=== PATIENT | male | born 1995 | race Caucasian/White ===

== ENCOUNTER 2017-03-08 17:50 | Emergency (ER) | payer OTHER ==
[~2017-03-08] VITALS: Ht 188 cm; Wt 98.2 kg
[2017-03-08 18:00] VITALS: TEMP 36.4; Ht 188 cm; Wt 98.2 kg
[2017-03-08 19:50] LABS: BUN/CREATININE RATIO 6.7 (10-20); CALCIUM 8.4 mg/dl (8.5-10.1); CREATININE 0.87 mg/dl (0.60-1.40); POTASSIUM 3.4 mmol/L (3.5-5.1)
--- NOTE | 2017-03-08 20:20 | DIAGNOSTIC IMAGING REPORT ---
CT HEAD WITHOUT CONTRAST (CT) CLINICAL HISTORY: Head pain status post trauma. Intoxication. COMPARISON STUDY: No previous studies for comparison. TECHNIQUE: Axial CT of the brain is performed from the vertex to the skull base. IV contrast was not administered for this examination. CT DOSE: 3125.23 mGy.cm FINDINGS: No intra or extra-axial mass lesions are visualized. There is no CT evidence of acute cortical infarction. There is no evidence of midline shift. There is no acute hemorrhage. No calvarial fractures are visualized. The study is mildly compromised due to motion artifact. There is no evidence of pathologic ventricular dilatation. There is no evidence of acute sinusitis IMPRESSION: Normal noncontrast head CT. Electronically signed by: Collin Grady M.D. 03/08/2017 8:17 PM Dictated Date/Time: 03/08/2017 8:16 PM
--- NOTE | 2017-03-08 20:23 | DIAGNOSTIC IMAGING REPORT ---
CT OF THE CERVICAL SPINE CLINICAL HISTORY: Neck pain status post trauma COMPARISON STUDY: No previous studies for comparison. CT DOSE: TECHNIQUE: CT scan of the cervical spine was performed from the skull base to the thoracic inlet. Images are reviewed in the axial, sagittal, and coronal planes. IV contrast was not administered for this examination. FINDINGS: The visualized portions of the lung apices reveal no evidence of pneumothorax. The prevertebral soft tissues are normal. No fractures or subluxations are visualized. IMPRESSION: No evidence of acute fracture or traumatic subluxation. Electronically signed by: Collin Grady M.D. 03/08/2017 8:20 PM Dictated Date/Time: 03/08/2017 8:19 PM
[2017-03-08 23:00] VITALS: BP 121/54
[2017-03-08 23:35] VITALS: PULSE 76; O2SAT 97
--- NOTE | 2017-03-09 02:00 | EMERGENCY ROOM VISIT NOTE ---
History Report prepared by Nemesio: Gonsalo Tellez Under the Supervision of: Dr. Fabian Troncoso D.O. First contact with patient: 17:55 Chief Complaint: ALCOHOL OVERDOSE Stated Complaint: ETOH Nursing Triage Summary: pt was found unconscious by police given sternal rub pt awoke grabbing police arms was not cooperative. was cuffed and brought to ed History of Present Illness The patient is a 21 year old male who presents to the Emergency Room with complaints of constant alcohol intoxication occurring prior to arrival. Per the nursing staff, the patient was found unresponsive, and once given a sternal rub by the police, he woke up and he started swinging at the police, so he was handcuffed. The patient states that he was drinking alcohol. He denies being hurt or having any medical problems. The patient's history is limited due to alcohol intoxication. Source of History: patient, nursing staff History Limited By: intoxication Onset: prior to arrival Position: other (global) Quality: other (alcohol intoxication) Timing: constant Review of Systems See HPI for pertinent positives & negatives. A total of 10 systems reviewed and were otherwise negative. Past Medical & Surgical Limited due to alcohol intoxication Family History Limited due to alcohol intoxication Social History Smoking Status: Never Smoker Alcohol Use: occasionally Occupation Status: [employer] student Current/Historical Medications Unable to Obtain Active Prescriptions or Reported Meds Physical Exam Vital Signs Date Time Temp Pulse Resp B/P Pulse Ox O2 Delivery O2 Flow Rate FiO2 03/08/17 23:35 76 17 97 03/08/17 23:05 76 14 97 03/08/17 23:00 121/54 03/08/17 22:35 70 18 95 03/08/17 22:13 75 03/08/17 22:05 70 18 95 03/08/17 22:00 98/49 03/08/17 21:35 68 17 96 03/08/17 21:30 70 18 96 03/08/17 21:00 68 16 117/59 97 03/08/17 20:55 114/54 03/08/17 19:30 61 16 95 03/08/17 18:29 68 16 125/57 95 Room Air 03/08/17 18:15 68 03/08/17 18:00 36.4 89 18 154/72 96 Room Air Physical Exam GENERAL: Laying in bed, disheveled, smell of alcohol is present on his breath. HEAD: Small abrasion over the anterior chin. EYE EXAM: injected conjunctiva, PERRL and EOM's grossly intact OROPHARYNX: no exudate, no erythema, lips, buccal mucosa, and tongue normal and mucous membranes are moist NOSE: No septal hematoma. NECK: supple, no nuchal rigidity, no adenopathy, non-tender LUNGS: Clear to auscultation. Normal chest wall mechanics HEART: no murmurs, S1 normal and S2 normal ABDOMEN: abdomen soft, non-tender, normo-active bowel sounds, no masses, no rebound or guarding. BACK: Back is symmetrical on inspection and there is no deformity, no midline tenderness, no CVA tenderness. SKIN: no rashes and no bruising UPPER EXTREMITIES: Full active and passive range of motion without pain of all joints. Upper extremities are grossly normal. LOWER EXTREMITIES: No pitting edema. NEURO EXAM: Alert and following commands and immediately. Slurring speech. No focal deficits. Visibly intoxicated. Medical Decision & Procedures ER Provider Diagnostic Interpretation: Radiology results as stated below per my review and the radiologist's interpretation: CT OF THE CERVICAL SPINE CLINICAL HISTORY: Neck pain status post trauma COMPARISON STUDY: No previous studies for comparison. CT DOSE: TECHNIQUE: CT scan of the cervical spine was performed from the skull base to the thoracic inlet. Images are reviewed in the axial, sagittal, and coronal planes. IV contrast was not administered for this examination. FINDINGS: The visualized portions of the lung apices reveal no evidence of pneumothorax. The prevertebral soft tissues are normal. No fractures or subluxations are visualized. IMPRESSION: No evidence of acute fracture or traumatic subluxation. Electronically signed by: Collin Grady M.D. 03/08/2017 8:20 PM Dictated Date/Time: 03/08/2017 8:[address] HEAD WITHOUT CONTRAST (CT) CLINICAL HISTORY: Head pain status post trauma. Intoxication. COMPARISON STUDY: No previous studies for comparison. TECHNIQUE: Axial CT of the brain is performed from the vertex to the skull base. IV contrast was not administered for this examination. CT DOSE: 3125.23 mGy.cm FINDINGS: No intra or extra-axial mass lesions are visualized. There is no CT evidence of acute cortical infarction. There is no evidence of midline shift. There is no acute hemorrhage. No calvarial fractures are visualized. The study is mildly compromised due to motion artifact. There is no evidence of pathologic ventricular dilatation. There is no evidence of acute sinusitis IMPRESSION: Normal noncontrast head CT. Electronically signed by: Collin Grady M.D. 03/08/2017 8:17 PM Dictated Date/Time: 03/08/2017 8:16 PM Laboratory Results 03/08/17 19:17 Test 03/08/17 19:17 Anion Gap 9.0 mmol/L (3-11) Est Creatinine Clear Calc Drug Dose 157.5 ml/min Estimated GFR () 144.0 Estimated GFR (Non- 124.2 BUN/Creatinine Ratio 6.7 (10-20) Calcium Level 8.4 mg/dl (8.5-10.1) Ethyl Alcohol mg/dL 319.0 mg/dl (0-3) Laboratory results per my review. ED Course ED COURSE: Vital signs were reviewed and showed normal vitals The patients medical record was reviewed The above diagnostic studies were performed and reviewed. ED treatments and interventions as stated above. 0: The patient was evaluated in room B3. A complete history and physical examination was performed. 2205: I reevaluated the patient, and he awoken to painful stimuli 0042: I reassessed the patient, and he was up and walking around trying to find a sober friend. 0112: Upon reevaluation, the patient is resting and his friend, Saul, is going to take the patient home. I discussed my findings with the patient and he understands and agrees with the treatment plan. Based on the patients age, coexisting illnesses, exam and lab findings the decision to treat as an outpatient was made. The patient remained stable while under my care. The patient appeared well at the time of discharge. Medical Decision Differential diagnosis includes etiologies such as alcohol intoxication, toxicologic, infection, hypoglycemia, electrolyte abnormalities, cardiac sources , intracerebral event, neurologic, as well as others were entertained. Patient is a 21-year-old male brought in by police and EMS following being found sleeping and becoming agitated when awoken. Patient was visibly intoxicated. Nonfocal exam. Labs show slight hyper natremia with the secondary to the alcohol. Alcohol was 320. Patient was observed for over 6 hours. He did have a sober friend come to pick him up. He was able to ambulate throughout the room without difficulty. Patient has no new complaints. At this time I felt was reasonable to discharge him in the care of his sober friend.Discussed with Pt concerning signs and symptoms to watch out for. Pt was instructed to follow up with their PCP and discussed with the patient their option to return to the ED at anytime for persistent or worsening symptoms. The appropriate anticipatory guidance and out-patient management, including indications for return to the emergency department, were explained at length to the patient and understood. Impression Primary Impression: Alcohol abuse Additional Impression: Alcohol use with intoxication Scribe Attestation The scribe's documentation has been prepared under my direction and personally reviewed by me in its entirety. I confirm that the note above accurately reflects all work, treatment, procedures, and medical decision making performed by me. Departure Information Dispostion Home / Self-Care Prescriptions Unable to Obtain Active Prescriptions or Reported Meds Referrals No Doctor, Assigned (PCP) Forms HOME CARE DOCUMENTATION FORM, IMPORTANT VISIT INFORMATION Patient Instructions My [facility], [facility]: [employer] Students and Alcohol Related Visits Additional Instructions Please follow up with your primary care doctor or if you are a student [facility] services with in the next 24 hours. Any worsening of your symptoms, please return to the ED immediately. This includes new pain, headache , change in vision, chest pain, shortness of breath, weakness or numbness in arms or legs, confusion or any other concerning signs or symptoms from your standpoint. Absolutely no driving or drinking alcohol for the next 24 hours. Problem Qualifiers
== END 2017-03-09 01:18 | disposition home or self-care (01) ==
LOC: C.EDB 17:52
DX: F10.129 Alcohol abuse with intoxication, unspecified (principal)